=== PATIENT | male | born 1960 | race African-American/Black ===

== ENCOUNTER 2022-07-09 05:20 | Inpatient (IN) ==
[2022-07-02 12:11] LABS: Basophils % 0.5 % (0.0-0.8); Eosinophils # 0.3 10*3/uL (0.0-0.87); Eosinophils % 4.8 % (0.00-10.9); Hematocrit 42.6 VOL% (42.0-52.0); Hemoglobin 14.8 GM/DL (14.0-18.0); Immature Granulocytes % 0.2 %; Immature Granulocytes Absolute 0.01 #; Lymphocytes # 1.8 10*3/uL (1.4-4.0); Lymphocytes % 32.7 % (21.2-54.2); Mean Corpuscular HGB Conc 34.7 GM/DL (32-36); Mean Corpuscular Volume 78.2 FL (87-102); Mean Platelet Volume 11.6 FL (9.6-12.0); Monocytes # 0.6 10*3/uL (0.11-0.8); Monocytes % 10.4 % (1.7-12.7); Neutrophils % 51.4 % (38.7-73.9); Platelet Count 146 T/CUMM (130-400); Red Blood Count 5.45 MC/CUMM (3.8-5.5); White Blood Count 5.5 T/CUMM (4-12)
[2022-07-02 12:19] LABS: Bilirubin,Urine Negative (Negative); Blood, Urine Negative (Negative); Glucose,Urine (UA) Negative (Negative); Ketones,Urine Negative (Negative); Nitrite,Urine Negative (Negative); Protein,Urine Negative (Negative); RBC,Urine <1 /HPF (0-4); Squamous Epithelial Cell,Urine Occasional /HPF (0-10); Urine Appearance Clear (Clear); Urine Color Yellow (Yellow); Urine Urobilinogen 0.2 eU/dL (<2.0)
[2022-07-02 12:29] LABS: INR 0.9; PT Patient Result 10.3 SECS (10.1-12.1); Partial Thromboplastin Time 26.7 SECS (23.7-32.9)
[2022-07-02 12:41] LABS: Albumin 3.8 G/DL (3.4-5.0); Bilirubin,Total 0.4 MG/DL (0.20-1.00); Calcium 8.7 MG/DL (8.5-10.1); Osmolality,Calculated 272.8 MOS/KG (273-304); Potassium 4.7 MMOL/L (3.5-5.1); Total Protein 7.3 G/DL (6.4-8.2)
[2022-07-09] MEDS ORDERED: LACTATED RINGERS 1,000 ML IV SCH (05:30)
[2022-07-09] MEDS ORDERED: LIDOCAINE 2% 5 ML VIAL ONE (05:55)
[2022-07-09] MEDS ORDERED: SODIUM CHLORIDE 0.9% 250 ML IV ONE (05:55)
[2022-07-09] MEDS ORDERED: ONDANSETRON 4 MG/2 ML VIAL ONE (05:55)
[2022-07-09] MEDS ORDERED: MIDAZOLAM 2 MG/2 ML VIAL ONE ×3 (05:55→07:47)
[2022-07-09] MEDS ORDERED: propofoL 200 MG/20 ML VIAL IV ONE ×2 (05:55→06:44)
[2022-07-09] MEDS ORDERED: DEXAMETHASONE 4 MG/1 ML VIAL ONE (05:55)
[2022-07-09] MEDS ORDERED: fentaNYL 100 MCG/2 ML VIAL ONE (05:55)
[2022-07-09] MEDS ORDERED: VANCOMYCIN INJ 1,000 MG in SODIUM CHLORIDE 0.9% 250 ML IV ONE (06:00)
[2022-07-09] MEDS ORDERED: LIDOCAINE 1% 5 ML VIAL ONE (06:02)
[2022-07-09] MEDS ORDERED: ROPIVACAINE 0.5% 30 ML VIAL ONE (06:03)
[2022-07-09] MEDS ORDERED: ACETAMINOPHEN 500 MG TABLET PO ONE (06:28)
[2022-07-09] MEDS ORDERED: GABAPENTIN 400 MG CAPSULE PO ONE (06:29)
[2022-07-09] MEDS ORDERED: PROMETHAZINE 25 MG/1 ML VIAL IM PRN (07:03)
[2022-07-09] MEDS ORDERED: TEMAZEPAM 7.5 MG CAPSULE PO PRN (07:03)
[2022-07-09] MEDS ORDERED: MORPHINE 2 MG/1 ML SYRINGE IV PRN ×2 (07:03→07:18)
[2022-07-09] MEDS ORDERED: ONDANSETRON 4 MG/2 ML VIAL IV PRN (07:03)
[2022-07-09] MEDS ORDERED: MAGNESIUM HYDROXIDE SUSP 30 ML UDCUP PO PRN (07:03)
[2022-07-09] MEDS ORDERED: diphenhydrAMINE CAP 25 MG CAPSULE PO PRN (07:03)
[2022-07-09] MEDS ORDERED: BISACODYL 10 MG SUPP RECTAL PRN (07:03)
[2022-07-09] MEDS ORDERED: LACTULOSE 20 GM/30 ML UDCUP PO PRN (07:03)
[2022-07-09] MEDS ORDERED: buprenorphine HCL 0.3 MG/ML VIAL ONE (07:04)
[2022-07-09] MEDS ORDERED: PHENYLEPHRINE 1 MG/10 ML SYRINGE IV ONE (07:30)
[2022-07-09] MEDS: amLODIPine 5 MG TABLET PO SCH (10:03)
[2022-07-09] MEDS: ASPIRIN EC 325 MG TABLET PO SCH (11:50)
[2022-07-09] MEDS: DOCUSATE SODIUM 100 MG CAPSULE PO SCH ×2 (11:50→21:03)
[2022-07-09] MEDS: POTASSIUM CHLORIDE 20 MEQ TABLET PO SCH ×2 (11:50→21:03)
[2022-07-09] MEDS: ENALAPRIL 20 MG TABLET PO SCH (11:50)
[2022-07-09] MEDS: FUROSEMIDE 40 MG TABLET PO SCH (16:30)
[2022-07-09] MEDS: carvediloL 25 MG TABLET PO SCH (16:30)
[2022-07-09] MEDS: ceFAZolin 2,000 MG/50 ML DUPLEX IV SCH ×2 (16:30→21:04)
[2022-07-10 05:55] LABS: Basophils % 0.2 % (0.0-0.8); Eosinophils # 0.1 10*3/uL (0.0-0.87); Eosinophils % 0.6 % (0.00-10.9); Hemoglobin 12.6 GM/DL (14.0-18.0); Immature Granulocytes % 0.3 %; Immature Granulocytes Absolute 0.03 #; Lymphocytes # 2.2 10*3/uL (1.4-4.0); Lymphocytes % 21.3 % (21.2-54.2); Mean Corpuscular Volume 78.3 FL (87-102); Mean Platelet Volume 11.4 FL (9.6-12.0); Monocytes # 2.2 10*3/uL (0.11-0.8); Neutrophils % 56.6 % (38.7-73.9); Platelet Count 134 T/CUMM (130-400); White Blood Count 10.5 T/CUMM (4-12)
[2022-07-10 06:15] LABS: Calcium 8.2 MG/DL (8.5-10.1); Osmolality,Calculated 270.2 MOS/KG (273-304)
[2022-07-10 06:26] LABS: Eosinophils 1 % (0-10); Hypochromia Slight; Lymphocytes 17 % (20-55); Microcytosis 1+; Total Cells Counted 100
[2022-07-10 06:27] LABS: Platelet Estimate Adequate
[2022-07-10] MEDS ORDERED: ACETAMINOPHEN 325 MG TABLET PO PRN (07:04)
[2022-07-10] MEDS: DOCUSATE SODIUM 100 MG CAPSULE PO SCH ×2 (08:46→20:26)
[2022-07-10] MEDS: ASPIRIN EC 325 MG TABLET PO SCH (08:46)
[2022-07-10] MEDS: POTASSIUM CHLORIDE 20 MEQ TABLET PO SCH ×2 (08:47→20:26)
[2022-07-10] MEDS: ENALAPRIL 20 MG TABLET PO SCH (08:47)
[2022-07-10] MEDS: amLODIPine 5 MG TABLET PO SCH (08:47)
[2022-07-10] MEDS: FUROSEMIDE 40 MG TABLET PO SCH ×2 (08:47→16:20)
[2022-07-10] MEDS: carvediloL 25 MG TABLET PO SCH ×2 (08:47→17:41)
[2022-07-10] MEDS: FONDAPARINUX 2.5 MG/0.5 ML SYRINGE SUBCUT SCH (17:41)
[2022-07-11] MEDS: carvediloL 25 MG TABLET PO SCH ×2 (09:05→17:36)
[2022-07-11] MEDS: ENALAPRIL 20 MG TABLET PO SCH (09:05)
[2022-07-11] MEDS: POTASSIUM CHLORIDE 20 MEQ TABLET PO SCH ×2 (09:06→20:35)
[2022-07-11] MEDS: DOCUSATE SODIUM 100 MG CAPSULE PO SCH ×2 (09:06→20:35)
[2022-07-11] MEDS: PANTOPRAZOLE 40 MG TABLET PO SCH (09:06)
[2022-07-11] MEDS: FUROSEMIDE 40 MG TABLET PO SCH ×2 (09:06→16:19)
[2022-07-11] MEDS: amLODIPine 5 MG TABLET PO SCH (09:06)
[2022-07-11] MEDS: ASPIRIN EC 325 MG TABLET PO SCH (09:06)
[2022-07-11] MEDS: FONDAPARINUX 2.5 MG/0.5 ML SYRINGE SUBCUT SCH (17:36)
[2022-07-12] MEDS: ENALAPRIL 20 MG TABLET PO SCH (08:27)
[2022-07-12] MEDS: DOCUSATE SODIUM 100 MG CAPSULE PO SCH (08:27)
[2022-07-12] MEDS: PANTOPRAZOLE 40 MG TABLET PO SCH (08:27)
[2022-07-12] MEDS: ASPIRIN EC 325 MG TABLET PO SCH (08:27)
[2022-07-12] MEDS: amLODIPine 5 MG TABLET PO SCH (08:27)
[2022-07-12] MEDS: POTASSIUM CHLORIDE 20 MEQ TABLET PO SCH (08:27)
[2022-07-12] MEDS: carvediloL 25 MG TABLET PO SCH (08:27)
[2022-07-12] MEDS: FUROSEMIDE 40 MG TABLET PO SCH (08:27)
[2022-07-12 11:56] VITALS: BP 151/77
== END 2022-07-12 12:30 | disposition home health service (06) | DRG 470 ==
LOC: N.OR 05:20 → N.SDSINP 05:20 → N.3E 07:03
PROVIDERS: ADMIT Orthopaedic Surgery; ATTEND Orthopaedic Surgery